=== PATIENT | female | born 1970 | race African-American/Black ===

== ENCOUNTER 2019-10-30 15:11 | Emergency (ER) | payer MEDICAID ==
[~2019-10-30] VITALS: Ht 149.9 cm; Wt 91.0 kg
[2019-10-30 15:25] VITALS: BP 135/84
[2019-10-30] MEDS ORDERED: KETOROLAC 60MG/2ML VIAL IM ONE (17:00)
== END 2019-10-30 17:30 | disposition home or self-care (01) ==
LOC: ER 15:11
DX: S39.012A Strain of muscle, fascia and tendon of lower back, initial encounter (principal); V49.49XA Driver injured in collision with other motor vehicles in traffic accident, initial encounter; Y93.89 Activity, other specified; Y92.89 Other specified places as the place of occurrence of the external cause; Y99.8 Other external cause status
CPT/HCPCS: 99282; 99283; J1885